=== PATIENT | female | born 1980 | race Caucasian/White ===

== ENCOUNTER 2016-09-01 00:07 | Observation (INO) | payer OTHER ==
[2016-09-02] VITALS (9 sets, daily range): BP systolic 92–123; BP diastolic 42–66; PULSE 62–82; TEMP 97.2–98
[2016-09-02] MEDS ORDERED: SYNTHROID0.125 MG/T PO (02:03)
[2016-09-02] MEDS ORDERED: ULTRAM 50MG TAB50 MG PO (02:04)
[2016-09-02] MEDS ORDERED: ZOLOFT 50MG50 MG PO (02:04)
[2016-09-02] MEDS ORDERED: ZOFRAN 4MG T4 MG/TAB PO (02:05)
[2016-09-02] MEDS ORDERED: IBU800 M1 PO (05:31)
[2016-09-02] MEDS ORDERED: PERCOCET 325 MG1 TA2 PO (05:31)
== END 2016-09-02 11:05 | disposition home or self-care (01) ==
LOC: OB 00:07
DX: N80.2 Endometriosis of fallopian tube (principal); N80.1 Endometriosis of ovary; N83.201 Unspecified ovarian cyst, right side; E03.9 Hypothyroidism, unspecified; F17.210 Nicotine dependence, cigarettes, uncomplicated
CPT/HCPCS: G0378; J0330; J0690; J1100; J1885; J2175; J2405; J2550; J2704; J2710; J3010; J7030; J7120

== ENCOUNTER → 2018-07-11 | Outpatient (CLI) | payer BC, OTHER ==
[~2018-07-11] MED LIST: IBU800 M1 PO; PERCOCET 325 MG1 TA2 PO; SYNTHROID0.125 MG/T PO; ULTRAM 50MG TAB50 MG PO; ZOFRAN 4MG T4 MG/TAB PO; ZOLOFT 50MG50 MG PO
[2018-07-11 11:56] LABS: CHOLESTEROL RISK RATIO 4.8
== END ==
LOC: COL.LAB 11:19
PROVIDERS: Nurse Practitioner
DX: I70.0 Atherosclerosis of aorta (principal)